=== PATIENT | male | born 1960 | race Caucasian/White ===

== ENCOUNTER 2022-11-21 08:50 | Outpatient (CLI) | payer MEDICARE, SELFPAY ==
[2022-11-21 14:15] LABS: Albumin* 4.4 g/dL (3.3-5.0); Chloride* 110 mmol/L (96-114)
[2022-11-21 14:16] LABS: Potassium* 5.1 mmol/L (3.6-5.1); Sodium* 139 mmol/L (135-149)
[2022-11-21 14:18] LABS: Aspartate Amino Transferase* 23 U/L (12-35); Bilirubin Total* 0.4 mg/dL (0.1-1.5); Blood Urea Nitrogen* 38 mg/dL (7-30); Carbon Dioxide* 21 mmol/L (20-32); Creatinine* 2.1 mg/dL (0.5-1.5); Estimated Glomerular Filt Rate 35 ml/min; Total Protein* 7.1 g/dL (6.0-8.3)
[2022-11-21 14:19] LABS: Alanine Aminotransferase* 16 U/L (4-50); Alkaline Phosphatase* 128 U/L (40-150); Calcium* 8.8 mg/dL (8.4-10.6); Glucose* 123 mg/dL (60-115); Magnesium* 2.5 mg/dL (1.5-2.6)
[2022-11-21 14:58] LABS: Vitamin B12* 448 pg/mL (243-894)
== END 2022-11-21 08:51 | disposition home or self-care (01) ==
PROVIDERS: PCP Family Medicine; Visit Provider Family Medicine
DX: Z00.00 Encounter for general adult medical examination without abnormal findings (principal); E78.5 Hyperlipidemia, unspecified; I10 Essential (primary) hypertension; R53.83 Other fatigue; M79.609 Pain in unspecified limb; R20.2 Paresthesia of skin
CPT/HCPCS: 80053; 82607; 83735; 84443

== ENCOUNTER 2022-11-30 14:18 | Outpatient (CLI) | payer MEDICARE, SELFPAY ==
--- NOTE | 2022-11-30 14:30 | MR_ITS ---
[facility] [address] [facility] [address] Phone:?[phone] Fax:?[phone] Referring Physician Information: Estela Maharaj D.O. [address] [facility] [address] Phone:?[phone] Fax:?[phone] Patient:Juan Carlos Vance D.O.B:?1960 Sex:?Male Phone:?[phone] [facility] MRN:?[id number] Exam Date:?11/30/2022 ? EXAM: MRI of the RIGHT SHOULDER, without contrast CLINICAL HISTORY: Right shoulder paresthesia and pain. Suspect rotator cuff tear and impingement. COMPARISONS: None available. TECHNICAL: MRI sequences of the right shoulder: Axials: PD, T2 Coronals: PD, STIR, T2 Sagittals: PD, T2 SEDATION: None CONTRAST: None FINDINGS: Bones: Cystlike change within the lateral aspect of the humeral head measuring 2.2 x 1.5 x 2.0 cm is likely degenerative in etiology. Coracoacromial arch: Acromion: No os acromiale. A subacromial enthesophyte is best seen on coronal series 5 image 16. Acromiohumeral space: Severely narrowed in the setting of complete full- thickness supraspinatus and infraspinatus tendon tears. Coracohumeral space: The bony distance measures 7-8 mm. Acromioclavicular joint: No acute injury, arthropathy, or inferior hypertrophy. Coracoclavicular ligament: The coracoclavicular ligament is intact. Rotator cuff muscles/tendons: Supraspinatus and infraspinatus: There are complete full-thickness tears of the supraspinatus and infraspinatus tendon insertions with proximal tendon retraction to the level of the glenoid, superior subluxation of the humeral head/rotator cuff arthropathy, moderate to marked atrophy of the supraspinatus muscle, and marked atrophy of the infraspinatus muscle. Teres minor: Complete fatty atrophy of the teres minor muscle. Subscapularis: Near-complete essentially full-thickness tear of the subscapularis tendon. Marked atrophy of the subscapularis muscle. Labrum and glenohumeral joint: Degenerative fraying of most of the labrum. Extensive chondral thinning is suspected over most of the humeral head although it must be noted that the cartilage is not well evaluated by this nonarthrogram study. There is mild inferomedial humeral head osteophytosis. No convincing evidence of capsular edema or thickening although evaluation is suboptimal because of lack of joint distention. Proximal biceps tendon, long head and short heads: Rupture of the proximal long head of the biceps tendon with distal tendon retraction distal to the bicipital groove. The short head is intact. Bursae: Fluid is not unexpected given full-thickness rotator cuff tendon tearing. IMPRESSION: 1. Complete full-thickness tears of the supraspinatus and infraspinatus tendon insertions with proximal tendon retraction to the level of the glenoid, superior subluxation of the humeral head/rotator cuff arthropathy, moderate to marked atrophy of the supraspinatus muscle, and marked atrophy of the infraspinatus muscle. 2. Near complete essentially full-thickness tear of the subscapularis tendon. Marked atrophy of the subscapularis muscle. 3. Rupture of the proximal long head of the biceps tendon with distal tendon retraction distal to the bicipital groove. 4. Extensive chondral thinning is suspected over most of the humeral head although it must be noted that the cartilage is not well evaluated by this nonarthrogram study. Mild inferomedial humeral head osteophytosis. Degenerative fraying of most of the labrum. 5. Cystic change within the lateral aspect of the humeral head is likely degenerative in etiology. Correlation with plain radiographs is recommended as a first step in further evaluation. 6. Subacromial enthesophyte. 7. Complete fatty atrophy of the teres minor muscle. RCB Electronically signed on 11/30/2022 4:56:00 PM by Blayne Ivey M.D.
== END 2022-11-30 14:19 | disposition home or self-care (01) ==
LOC: MRI 14:21
PROVIDERS: Visit Provider Family Medicine
DX: M25.511 Pain in right shoulder (principal); R20.2 Paresthesia of skin; S46.911A Strain of unspecified muscle, fascia and tendon at shoulder and upper arm level, right arm, initial encounter; M75.101 Unspecified rotator cuff tear or rupture of right shoulder, not specified as traumatic
CPT/HCPCS: 73221